=== PATIENT | male | born 1970 | race Caucasian/White ===

== ENCOUNTER 2018-05-16 00:10 | Emergency (ER) | payer BC ==
[~2018-05-16] VITALS: Ht 182.9 cm; Wt 90.9 kg
[~2018-05-16 00:10] MED LIST: NO HOME MEDICATIONS
[2018-05-16 00:20] VITALS: TEMP 98
[2018-05-16] MEDS ORDERED: DUPIXENT300 MG/2 M SQ (01:45)
[2018-05-16] MEDS ORDERED: NORCO 325 MG-51 TAB PO (02:05)
[2018-05-16] MEDS ORDERED: FLEXERIL 1010 MG/TAB PO (02:08)
[2018-05-16 02:25] VITALS: BP 144/102; PULSE 99
== END 2018-05-16 02:30 | disposition home or self-care (01) ==
LOC: COL.ER 00:10
DX: G89.29 Other chronic pain (principal); M54.5 Low back pain
CPT/HCPCS: J1170; J1885

== ENCOUNTER → 2018-05-27 | Outpatient (CLI) | payer BC ==
[~2018-05-27] MED LIST changes: +DUPIXENT300 MG/2 M SQ; +FLEXERIL 1010 MG/TAB PO; +NORCO 325 MG-51 TAB PO
[2018-05-27 13:55] VITALS: BP 152/109; PULSE 89
== END ==
LOC: COL.RAD 11:30
DX: M51.26 Other intervertebral disc displacement, lumbar region (principal); M48.061 Spinal stenosis, lumbar region without neurogenic claudication

== ENCOUNTER → 2019-04-20 | Outpatient (CLI) | payer BC ==
[~2019-04-20] VITALS: Ht 182.9 cm; Wt 101.5 kg
[~2019-04-20] MED LIST changes: +COZAAR 50MG50 MG/TAB PO
[2019-04-20 13:28] VITALS: BP 144/89; PULSE 100
[2019-04-20 14:30] VITALS: BP 155/97; PULSE 86
--- NOTE | 2019-04-20 14:55 | NUR ---
Dr Breen into see pt. Pt reports he is feeling much better. Pt out to car per wheelchair. Pt up and into car without difficulty.
== END ==
LOC: COL.RAD 13:00
DX: M54.12 Radiculopathy, cervical region (principal)
CPT/HCPCS: J1100; Q9965

== ENCOUNTER → 2019-06-14 | Outpatient (CLI) | payer BC ==
[~2019-06-14] VITALS: Ht 182.9 cm; Wt 102.3 kg
[~2019-06-14] MED LIST changes: +FISH OIL 1000MG1 CAP PO; +PREVACID 30MG30 M1 PO; +ZANAFLEX 4MG TAB4 MG PO
[2019-06-14 06:20] VITALS: BP 124/79; PULSE 85
[2019-06-14 08:15] VITALS: BP 119/85; PULSE 75
== END ==
LOC: COL.RAD 05:56
DX: M51.26 Other intervertebral disc displacement, lumbar region (principal)
CPT/HCPCS: J3301; Q9965

== ENCOUNTER → 2020-01-26 | Outpatient (CLI) | payer BC ==
[~2020-01-26] VITALS: Ht 182.9 cm; Wt 100.0 kg
[2020-01-26 12:33] VITALS: BP 130/86; PULSE 91
[2020-01-26 13:30] VITALS: BP 154/97; PULSE 80
== END ==
LOC: COL.RAD 01-22 11:45
DX: M51.36 Other intervertebral disc degeneration, lumbar region (principal)
CPT/HCPCS: J3301

== ENCOUNTER 2020-03-20 10:02 | Day surgery (SDC) | payer BC ==
[2020-03-20] VITALS (8 sets, daily range): BP systolic 121–148; BP diastolic 79–89; PULSE 81–89; TEMP 97.3–98
[~2020-03-20] VITALS: Ht 182.9 cm; Wt 98.8 kg
[2020-03-20] MEDS ORDERED: LIPITOR 10MG10 MG PO (11:28)
[2020-03-20] MEDS ORDERED: COZAAR 50MG50 MG/TAB PO (11:29)
[2020-03-20] MEDS ORDERED: Fish oil PO (11:31)
[2020-03-20] MEDS ORDERED: ADVIL200 MG PO (11:32)
[2020-03-20] MEDS ORDERED: FISH,FLAX,BORAGE OIL PO (11:32)
[2020-03-20] MEDS ORDERED: NORCO 325 MG-51 TAB PO (14:33)
--- NOTE | 2020-03-20 15:30 | NUR ---
Returns to room 2 per cart from PACU accompanied by Kaci JOY and is awake. IV fluids infusing. Abdominal binder on and bandaids x3 on left side of abdomen. Temp 97.6. Siderails up x2 and call light in reach. Allowed to rest.
--- NOTE | 2020-03-20 15:45 | NUR ---
Room air sats 88-90% when asleep. Placed on oxygen at 2L per nasal cannula.
--- NOTE | 2020-03-20 16:00 | NUR ---
Continues to rest without complaints of pain or nausea.
--- NOTE | 2020-03-20 16:15 | NUR ---
Resting with eyes closed. Remains on oxygen at 2L per nasal cannula.
--- NOTE | 2020-03-20 16:30 | NUR ---
Sitting up and eating crackers and drinking juice. Room air sats 97%.
--- NOTE | 2020-03-20 16:33 | NUR ---
[place] 5mg one tab given for complaints abdominal soreness. Abdominal binder remains on and bandaids dry.
--- NOTE | 2020-03-20 17:00 | NUR ---
Assisted up to the bathroom and gait steady. Able to void and returns to room.
--- NOTE | 2020-03-20 17:05 | NUR ---
IV discontinued and site is free of redness. Given dismissal instructions and voices understanding of these.
--- NOTE | 2020-03-20 17:30 | NUR ---
Patient is dressed and ready for discharge. Dismissal instructions signed. Dismissed to home and taken to the emergency room entrance by Sharlene JOY and dismissed to home with instructions in hand.
== END 2020-03-20 17:30 | disposition home or self-care (01) ==
LOC: SDCO 10:02
DX: K42.9 Umbilical hernia without obstruction or gangrene (principal); I10 Essential (primary) hypertension; E78.00 Pure hypercholesterolemia, unspecified
CPT/HCPCS: C1781; J0690; J1100; J1885; J2175; J2250; J2405; J2704; J2710; J3010; J7120